=== PATIENT | female | born 1970 | race Asian ===

== ENCOUNTER → 2021-06-15 | Outpatient (CLI) | payer OTHER ==
--- NOTE | 2021-06-15 17:09 | RAD ---
DATE: 06/15/2021 EXAM: MG BILAT SCREEN+ANTHONY HISTORY: Screening COMPARISON: None. Baseline exam This study was interpreted with the benefit of Computerized Aided Detection (CAD). Breast Density: SCATTERED The breast parenchyma shows scattered fibroglandular densities. Breast pare nchyma level B. FINDINGS: There is a 4 mm nodular asymmetry in the left breast slightly lateral to the nipple and 2.3 cm psoterior to the nipple on CC view. There is a 5 mm nodular asymmetry in the upper left breast 6. 5 cm from the nipple on MLO view. Additional nodular asymmetry in the upper right breast 7.4 cm from the nipple on MLO view. No calcifications or architectural distortion. IMPRESSION: There are 2 asymmetries in the left breast and 1 asymmetry in the right breast. As this i s the patient's baseline exam, spot compression CC and MLO views of the left breast and spot compress ion MLO view of the right breast is recommended to further evaluate. BI-RADS CATEGORY: 0 INCOMPLETE: NEEDS ADDITIONAL IMAGING EVALUATION AND/OR PRIOR MAMMOGRAMS FOR [facility]. RECOMMENDED FOLLOW-UP: ADD ADDITIONAL IMAGING PQRS compliance statement: Patient information was entered into a reminder system with a target due d ate for the next mammogram. Mammography is a sensitive method for finding small breast cancers, but it does not detect them all a nd is not a substitute for careful clinical examination. A negative mammogram does not negate a clin ically suspicious finding and should not result in delay in biopsying a clinically suspicious abnorma lity. "Our facility is accredited by the [employer] Mammography Program." Electronically signed by: Gail Obando MD (06/15/2021 5:06 PM) [id number]
== END ==
LOC: MAMMO 15:43
PROVIDERS: ATTEND Family Medicine
DX: Z12.31 Encounter for screening mammogram for malignant neoplasm of breast (principal)
CPT/HCPCS: 77063; 77067

== ENCOUNTER → 2021-07-11 | Outpatient (CLI) | payer OTHER ==
--- NOTE | 2021-07-11 14:00 | RAD ---
DIAGNOSTIC BILATERAL BREAST MAMMOGRAM TECHNIQUE: Multiple digital mammography with bilateral lateral field ML views, spot compression right MLO, spot compression left MLO and spot compression left cc views. INDICATION: Call back for bilateral breast asymmetries COMPARISON: 06/15/2021 FINDINGS: Breast Density: Category B: There are scattered fibroglandular densities. The anterior left breast asymmetry seen on CC view and upper left breast asymmetry on the MLO view as well as the right MLO view upper breast asymmetry efface with spot compression views consistent with normal superimposed fibroglandular breast tissue. No masses are identified. No suspicious calcificat ions or architectural distortion. IMPRESSION: 1. No imaging evidence of malignancy. ASSESSMENT: BI-RADS 1: Negative. RECOMMENDATION: Routine annual screening mammogram. The facility will notify the patient of the results via mail. Patient information will be entered int o the mammography reminder system with a target recall date for the next mammogram. A reminder letter will be generated by the facility. Electronically signed by: Steve Randolph MD (07/11/2021 1:57 PM) [id number]
== END ==
LOC: MAMMO 12:45
PROVIDERS: ATTEND Family Medicine
DX: R92.2 Inconclusive mammogram (principal)
CPT/HCPCS: 77066